=== PATIENT | female | born 1950 | race African-American/Black ===

== ENCOUNTER 2022-03-31 13:43 | Inpatient (IN) | payer MEDICAID, MEDICARE ==
[~2022-03-31] VITALS: Ht 167.6 cm; Wt 71.2 kg
[2022-03-31] MEDS ORDERED: SODIUM CHLORIDE 0.9% 1,000 ML IV ONE (14:15)
[2022-03-31] MEDS ORDERED: CEFTRIAXONE 1 G PREMIX 50 ML IV ONE (14:15)
[2022-03-31] MEDS ORDERED: ONDANSETRON HCL 4MG/2ML INJ IV ONE (14:15)
[2022-03-31 14:21] LABS: HEMATOCRIT. 34.8 % (36.0-48.0); HEMOGLOBIN. 10.4 g/dL (12.0-16.0); MEAN CORPUSCULAR HEMOGLOBIN 23.9 pg (28.0-32.0); MEAN PLATELET VOLUME 8.4 fl (7.4-10.4); PLATELET 231 x1000/uL (130-400); RED BLOOD CELL COUNT 4.35 mill/uL (4.2-5.4); RED CELL DISTRIBUTION WIDTH 20.4 % (11.6-14.6)
[2022-03-31 14:26] LABS: CHLORIDE 100 mEq/L (98-107); PROTHROMBIN TIME 10.9 sec (9.6-11.0)
[2022-03-31 14:26] LABS: BG BASE EXCESS -14.9 mmol/L (-2.0-2.0); BG CARBOXYHEMOGLOBIN 0.5 % (0.5-1.5); BG HCO3 ACT 9.2 mmol/L (22.0-26.0); BG METHEMOGLOBIN 1.3 % (0.0-1.5); BG OXYGEN SATURATION 94.9 % (92.0-98.5); BG OXYHEMOGLOBIN 93.2 % (94.0-97.0); BG PCO2 18.4 mmHg (35.0-45.0); BG PH 7.316 (7.350-7.450); BG PO2 79.8 mmHg (75.0-100.0); BG SAMPLE SITE RIGHT BRACHIAL; BG TOTAL HEMOGLOBIN 10.9 g/dL (12.0-18.0); BG VENT MODE ROOM AIR
[2022-03-31] MEDS: PANTOPRAZOLE SODIUM 40 MG/VIAL IV SCH (14:31)
[2022-03-31 15:14] LABS: PLATELET ESTIMATE NORMAL
[2022-03-31] MEDS ORDERED: KCL 10MEQ/50ML PREMIX 50 ML IV ONE (15:45)
[2022-03-31] MEDS ORDERED: INSULIN REGULAR (DRIP) 100 UNITS in SODIUM CHLORIDE 0.9% 99 ML IV SCH (15:45)
[2022-03-31] MEDS ORDERED: INSULIN REGULAR 100U/100ML PMX 100 ML IV SCH (16:00)
[2022-03-31] MEDS ORDERED: AZITHROMYCIN 500MG/250ML 250 ML IV ONE (16:30)
[2022-03-31] MEDS ORDERED: VANCOMYCIN 1G PREMIX 200 ML IV SCH (16:30)
[2022-03-31 17:30] LABS: PHOSPHORUS 2.8 mg/dL (2.5-4.9)
[2022-03-31] MEDS ORDERED: DEXT 5%/LACTATED RINGERS 1,000 ML IV ONE (18:15)
[2022-04-01 08:08] LABS: CHLORIDE 109 mEq/L (98-107)
[2022-04-01 08:16] LABS: BETA HYDROXYBUTYRATE 0.2 mMol/L (0.0-0.3)
[2022-04-01] MEDS: PANTOPRAZOLE SODIUM 40 MG/VIAL IV SCH ×2 (09:04→17:32)
[2022-04-01] MEDS: KCL 20MEQ/100ML PREMIX 100 ML IV SCH ×2 (09:23→12:38)
[2022-04-01 10:00] VITALS: BP 153/87
[2022-04-01] MEDS ORDERED: POTASSIUM CHLORIDE 20MEQ TABLET SR PO NR (10:45)
[2022-04-01] MEDS ORDERED: DEXTROSE 50% WATER 50ML SYRINGE IV PRN (10:45)
[2022-04-01] MEDS: BLOOD SUGAR DIAGNOSTIC STRIP TEST SCH ×4 (11:30→20:26)
[2022-04-01] MEDS ORDERED: AZITHROMYCIN 500MG/250ML 250 ML IV NR (11:45)
[2022-04-01 12:00] VITALS: BP 149/84
[2022-04-01] MEDS ORDERED: INSULIN GLARGINE 100 UNITS/ML SUBCUT NR (12:00)
[2022-04-01] MEDS: INSULIN LISPRO 100 UNITS/ML SUBCUT SCH ×3 (12:40→20:25)
[2022-04-01] MEDS ORDERED: KCL 10MEQ/50ML PREMIX 50 ML IV NR (13:00)
[2022-04-01] MEDS: AZITHROMYCIN 500 MG in DEXT 5% WATER 250 ML IV SCH (13:00)
[2022-04-01] MEDS: CEFTRIAXONE 1,000 MG in DEXTROSE 5% WATER 50 ML IV SCH (13:01)
[2022-04-01] MEDS ORDERED: CEFTRIAXONE 1 G PREMIX 50 ML IV SCH (14:00)
[2022-04-01 16:00] VITALS: BP 158/83
[2022-04-01] MEDS ORDERED: EVER10TA PO (16:10)
[2022-04-01] MEDS ORDERED: OMEP20CA14 PO (16:10)
[2022-04-01] MEDS ORDERED: LORA-249 PO (16:10)
[2022-04-01] MEDS ORDERED: POTA-203 PO (16:10)
[2022-04-01] MEDS ORDERED: DIPH1TAB24 PO (16:10)
[2022-04-01] MEDS ORDERED: FELO10TA45 PO (16:10)
[2022-04-01] MEDS ORDERED: ASPI-1406 PO (16:10)
[2022-04-01] MEDS ORDERED: LISI2.5T47 PO (16:10)
[2022-04-01] MEDS ORDERED: SIMV-43 PO (16:10)
[2022-04-01] MEDS ORDERED: FERR325T6 PO (16:10)
[2022-04-01] MEDS ORDERED: VIT1TABL62 PO (16:10)
[2022-04-01] MEDS ORDERED: FURO40TA5 PO (16:10)
[2022-04-01] MEDS ORDERED: INFLUENZA VACCINE 05/PF 0.5 ML SYRINGE IM ONE (16:15)
[2022-04-01] MEDS ORDERED: PNEUMOCOCCAL 23-VAL P-SAC VAC 0.5 ML IM ONE (16:15)
[2022-04-01 17:01] LABS: BASOPHILS % 0.2 % (0.0-2.0); EOSINOPHILS % 0.2 % (0.0-5.0); HEMATOCRIT. 28.2 % (36.0-48.0); HEMOGLOBIN. 8.8 g/dL (12.0-16.0); LYMPHOCYTES % 8.7 % (20.0-50.0); MEAN CORPUSCULAR HEMOGLOBIN 24.1 pg (28.0-32.0); MEAN CORPUSCULAR VOLUME 77.3 fL (81.0-99.0); MEAN PLATELET VOLUME 8.6 fl (7.4-10.4); MONOCYTES % 11.4 % (2.0-8.0); NEUTROPHILS % 79.5 % (40.0-76.0); PLATELET 173 x1000/uL (130-400); RED BLOOD CELL COUNT 3.65 mill/uL (4.2-5.4)
[2022-04-01 17:11] LABS: PHOSPHORUS 0.6 mg/dL (2.5-4.9)
[2022-04-01 17:34] LABS: TOTAL IRON BINDING CAPACITY 182 ug/dL (250-450)
[2022-04-01 18:01] LABS: VITAMIN B12 SERUM 484 pg/mL (211-911)
[2022-04-01] MEDS ORDERED: SODIUM PHOS,M-BASIC-D-BASIC 15 MM in DEXT 5% WATER 245 ML IV NR (18:30)
[2022-04-01 20:00] VITALS: BP 129/75
[2022-04-01] MEDS: INSULIN GLARGINE 100 UNITS/ML SUBCUT SCH (21:50)
[2022-04-02] VITALS: BP 130/80
[2022-04-02] MEDS: POTASSIUM CHLORIDE INJ 30 MEQ in DEXT 5%/0.9% NACL 1,000 ML IV SCH ×2 (00:02→12:59)
[2022-04-02] MEDS ORDERED: POTASSIUM CHLORIDE 20MEQ TABLET SR PO NR (01:30)
[2022-04-02 02:50] LABS: HEMATOCRIT 24.7 % (36.0-48.0)
[2022-04-02] MEDS ORDERED: MAGNESIUM 2 G PREMIX 50 ML IV NR (03:30)
[2022-04-02 04:00] VITALS: BP 116/71
[2022-04-02 04:25] LABS: BASOPHILS % 0.4 % (0.0-2.0); HEMATOCRIT. 23.4 % (36.0-48.0); HEMOGLOBIN. 7.7 g/dL (12.0-16.0); LYMPHOCYTES % 11.4 % (20.0-50.0); MEAN CORPUSCULAR VOLUME 73.1 fL (81.0-99.0); MEAN PLATELET VOLUME 8.5 fl (7.4-10.4); NEUTROPHILS % 75.2 % (40.0-76.0); PLATELET 170 x1000/uL (130-400); RED BLOOD CELL COUNT 3.21 mill/uL (4.2-5.4); RED CELL DISTRIBUTION WIDTH 20.2 % (11.6-14.6)
[2022-04-02 04:31] LABS: PROTHROMBIN TIME 10.5 sec (9.6-11.0)
[2022-04-02] MEDS: INSULIN LISPRO 100 UNITS/ML SUBCUT SCH ×4 (06:52→21:07)
[2022-04-02] MEDS: BLOOD SUGAR DIAGNOSTIC STRIP TEST SCH ×4 (06:52→21:08)
[2022-04-02 08:00] VITALS: BP 165/65
[2022-04-02] MEDS: PANTOPRAZOLE SODIUM 40 MG/VIAL IV SCH ×2 (09:46→17:46)
[2022-04-02] MEDS: INSULIN GLARGINE 100 UNITS/ML SUBCUT SCH ×2 (09:47→21:07)
[2022-04-02] MEDS ORDERED: KCL 20MEQ/100ML PREMIX 100 ML IV NR (10:00)
[2022-04-02] MEDS ORDERED: PROPOFOL 200MG/20ML VIAL IV ONE (10:54)
[2022-04-02 12:00] VITALS: BP 170/76
[2022-04-02] MEDS ORDERED: AZITHROMYCIN 500 MG in DEXT 5% WATER 250 ML IV SCH (12:00)
[2022-04-02] MEDS ORDERED: HYDRALAZINE 20MG/ML VIAL IV PRN (12:30)
[2022-04-02] MEDS: SUCRALFATE 1 G/10 ML UDC PO SCH ×3 (12:58→21:06)
[2022-04-02] MEDS: AZITHROMYCIN 500 MG in DEXT 5% WATER 250 ML IV SCH (12:59)
[2022-04-02] MEDS ORDERED: CEFTRIAXONE 1,000 MG in DEXTROSE 5% WATER 50 ML IV SCH (13:00)
[2022-04-02 15:07] LABS: FERRITIN 270 ng/mL (10-291)
[2022-04-02] MEDS: CEFTRIAXONE 1,000 MG in DEXTROSE 5% WATER 50 ML IV SCH (15:16)
[2022-04-02 16:00] VITALS: BP 169/74
[2022-04-02] MEDS ORDERED: CLONIDINE 0.1MG TABLET PO NR (18:00)
[2022-04-02 20:00] VITALS: BP 138/61
[2022-04-02 21:11] LABS: HEMATOCRIT 24.8 % (36.0-48.0); HEMOGLOBIN 7.8 g/dL (12.0-16.0)
[2022-04-03] VITALS (8 sets, daily range): BP systolic 129–174; BP diastolic 67–80
[2022-04-03] MEDS: BLOOD SUGAR DIAGNOSTIC STRIP TEST SCH ×3 (06:12→17:10)
[2022-04-03] MEDS: INSULIN LISPRO 100 UNITS/ML SUBCUT SCH ×3 (06:12→17:40)
[2022-04-03] MEDS: SUCRALFATE 1 G/10 ML UDC PO SCH ×3 (06:12→17:10)
[2022-04-03] MEDS: PANTOPRAZOLE SODIUM 40 MG/VIAL IV SCH ×2 (09:25→16:15)
[2022-04-03] MEDS: INSULIN GLARGINE 100 UNITS/ML SUBCUT SCH (09:26)
[2022-04-03] MEDS: AZITHROMYCIN 500 MG in DEXT 5% WATER 250 ML IV SCH (12:14)
[2022-04-03] MEDS: CEFTRIAXONE 1,000 MG in DEXTROSE 5% WATER 50 ML IV SCH (14:00)
[2022-04-03] MEDS ORDERED: FOLIC ACID 1MG TABLET PO SCH (15:30)
[2022-04-03] MEDS ORDERED: DOCUSATE SODIUM 250MG CAPSULE PO SCH (16:00)
[2022-04-03] MEDS ORDERED: POLYETHYLENE GLYCOL 3350 (17GM) 1 DOSE PACK PO SCH (16:00)
[2022-04-03] MEDS ORDERED: PANTOPRAZOLE 40MG DR TABLET PO NR (16:15)
[2022-04-03 17:05] LABS: BASOPHILS % 0.6 % (0.0-2.0); EOSINOPHILS % 1.9 % (0.0-5.0); HEMATOCRIT. 24.3 % (36.0-48.0); HEMOGLOBIN. 7.9 g/dL (12.0-16.0); LYMPHOCYTES % 21.9 % (20.0-50.0); MEAN CORPUSCULAR VOLUME 73.6 fL (81.0-99.0); MEAN PLATELET VOLUME 8.8 fl (7.4-10.4); MONOCYTES % 14.8 % (2.0-8.0); NEUTROPHILS % 60.8 % (40.0-76.0); PLATELET 210 x1000/uL (130-400); RED CELL DISTRIBUTION WIDTH 20.6 % (11.6-14.6)
[2022-04-03] MEDS ORDERED: ASCORBIC ACID 500 MG TABLET PO SCH (17:40)
[2022-04-03] MEDS ORDERED: FERROUS SULFATE 325MG TABLET PO SCH (17:40)
== END 2022-04-03 20:45 | disposition home or self-care (01) | DRG 871 ==
LOC: ER 13:43 → MICUSO 17:31 → EDBEDREQTM 17:39 → EDBEDREQ 17:39 → 8WST 04-01 11:34
PROVIDERS: ADMIT Internal Medicine; ATTEND Internal Medicine
PROC: 0DB78ZX Excision of Stomach, Pylorus, Via Natural or Artificial Opening Endoscopic, Diagnostic (ICD-10-PCS; principal; 2022-04-02)
DX: A41.9 Sepsis, unspecified organism (principal); E11.10 Type 2 diabetes mellitus with ketoacidosis without coma; J18.9 Pneumonia, unspecified organism; E43 Unspecified severe protein-calorie malnutrition; K29.71 Gastritis, unspecified, with bleeding; E87.1 Hypo-osmolality and hyponatremia; Z20.822 Contact with and (suspected) exposure to COVID-19; K22.2 Esophageal obstruction; C50.919 Malignant neoplasm of unspecified site of unspecified female breast; D50.9 Iron deficiency anemia, unspecified; K44.9 Diaphragmatic hernia without obstruction or gangrene; E11.65 Type 2 diabetes mellitus with hyperglycemia; I10 Essential (primary) hypertension; F41.9 Anxiety disorder, unspecified; Z68.25 Body mass index [BMI] 25.0-25.9, adult
CPT/HCPCS: 36415; 36600; 71045; 80048; 80053; 82010; 82375; 82607; 82728; 82746; 82805; 82962; 83036; 83540; 83550; 83735; 84100; 84132; 84484; 85014; 85018; 85025; 85044; 86850; 86900; 87426; 87804; 88305; 88312; 88313; 88341; 90686; 90732; 93005; 99291; C9113; C9803; J0360; J0456; J0696; J1815; J2405; J2704; J3370; J3475; J3480; J3490; J7030; J7042; J7050; J7060; J7121